=== PATIENT | male | born 1990 ===

== ENCOUNTER 2018-01-17 17:28 | Emergency (ER) | payer OTHER ==
[~2018-01-17] VITALS: Ht 177.8 cm; Wt 136.1 kg
[2018-01-17 17:47] VITALS: BP 156/94
== END 2018-01-17 21:05 | disposition left against medical advice (07) ==
LOC: EDBD 17:28 → ER 17:35
DX: M25.512 Pain in left shoulder (principal); Z53.21 Procedure and treatment not carried out due to patient leaving prior to being seen by health care provider; Y08.89XA Assault by other specified means, initial encounter; Y93.89 Activity, other specified; Y99.8 Other external cause status; Y92.89 Other specified places as the place of occurrence of the external cause
CPT/HCPCS: 73030